=== PATIENT | male | born 2005 | race Caucasian/White ===

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

== ENCOUNTER 2024-02-15 06:51 | Emergency (ER) | payer SELFPAY ==
--- NOTE | ~2024-02-15 | XR_ITS ---
XR lumbar spine 2-3V 02/15/2024 07:54 Indication: Low back pain after heavy lifting Procedure: 3 views lumbar spine Comparison: No prior studies for comparison. Findings: Vertebral body heights are maintained. No significant disc narrowing. Normal lumbar lordosi s. Mild levocurvature of the lumbar spine, possibly positional. Sacral foramen are symmetric. Pedicle s intact. Impression: 1: Mild levocurvature of the lumbar spine. Reviewed, dictated and finalized at location B. Impression: 1: Mild levocurvature of the lumbar spine.
[2024-02-15 06:55] VITALS: BP 155/83; PULSE 79; RESP 18; TEMP 36.7; O2SAT 98
[2024-02-15] MEDS: KETOROLAC (*BKC) 60 MG/2 ML VIAL IM (07:17)
--- NOTE | 2024-02-15 07:17 | ED.BACK ---
HPI - Back Pain/Injury General Chief Complaint: Back Pain/Injury Stated Complaint: i have something going on with my lower back Time Seen by Provider: 02/15/24 07:00 History of Present Illness HPI Narrative: Patient is a 18-year-old male who presents ER with low back pain. Ongoing for 1 week. 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 He has been wearing a back brace and taking Tylenol for his pain. If persists. No numbness or weakness going down the legs. No saddle anesthesia. He reports sometimes the pain will grab him and then his legs will give out. No additional injury or complaint. No fevers or chills. No saddle anesthesia. Related Data Allergies Allergy/AdvReac Type Severity Reaction Status Date / Time Penicillins Allergy Rash Verified 02/15/24 06:58 Review of Systems Constitutional: Constitutional: Reports no additional constitutional complaints Musculoskeletal: Musculoskeletal: Reports back pain, Denies arthralgias, Denies joint swelling and Denies muscle cramps Neurologic: Reports system reviewed and no additional complaints, except as documented PMFSH Past Medical History Medical History (Updated 02/15/24 @ 08:17 by Victor M Mims MD) Healthy adult male Surgical History Surgical History (Updated 02/15/24 @ 07:19 by Victor M Mims MD) No history of previous surgery Exam Narrative: GENERAL: Well-appearing, well-nourished, and in no acute distress. HEAD: Normocephalic, atraumatic. ENT: Mucous membranes moist. BACK: patient reports tenderness at L5 just the right of midline. No reproducible tenderness on my exam. No bruising or swelling. EXTREMITIES: Normal range of motion. No edema. Ambulates without issue. SKIN: Warm, dry, no rash. NEURO: Alert and oriented x3. PSYCH: Normal mood and affect. Course Course Emergency Course: Imaging without fracture. Patient does not describe any radicular symptoms. Suspect muscle strain over disc herniation or infection. D/c with naproxen/cyclobenzaprine and a lifting restriction. will give the name of the on-call PCP. May require PT or MRI if symptoms not improving with conservative therapy. Vital Signs Vital signs: Vital Signs Temperature 98.1 F 02/15/24 06:55 Pulse Rate 79 02/15/24 06:55 Respiratory Rate 18 02/15/24 06:55 Blood Pressure 155/83 H 02/15/24 06:55 Pulse Oximetry 98 02/15/24 06:55 Oxygen Delivery Room Air 02/15/24 06:55 Temperature 98.1 F 02/15/24 06:55 Pulse Rate 79 02/15/24 06:55 Respiratory Rate 18 02/15/24 06:55 Blood Pressure 155/83 H 02/15/24 06:55 Pulse Oximetry 98 02/15/24 06:55 Oxygen Delivery Room Air 02/15/24 06:55 MDM - Back Pain/Injury Imaging Data Radiologist's impression: ITS Impressions Lumbar Spine X-Ray 02/15/24 07:55 Impression: 1: Mild levocurvature of the lumbar spine. Discharge Plan Discharge Clinical Impression: Strain of lumbar region Patient Disposition: Home, Self-Care Condition: Stable Instructions: Acute Low Back Pain (ED) Additional Instructions: Please return to the emergency department if you develop severe pain that is not controlled by pain medications or if you are unable to walk because of pain or weakness. Return to the emergency department immediately if you develop fevers, loss of bowel or bladder control (dribbling of urine or having accidents you wouldn't normally have), inability to urinate, numbness of your genital or anal area, or weakness/numbness of your legs or arms as these could all be signs of a serious medical emergency. Prescriptions: New cyclobenzaprine 10 mg tablet 10 mg PO TID PRN (Reason: muscle spasm) Qty: 20 0RF naproxen 375 mg tablet 375 mg PO BID Qty: 14 0RF Follow-up/Referrals: PHYSICIAN NOT ON STAFF,NONSTAFF [Non-Staff] - Benji Winkler MD [Physician] - 1 Week Stand Alone Forms: Work/School Release IP
== END 2024-02-15 08:25 | disposition home or self-care (01) ==
PROVIDERS: Emergency Provider Emergency Medicine
DX: S39.012A Strain of muscle, fascia and tendon of lower back, initial encounter (principal); X50.0XXA Overexertion from strenuous movement or load, initial encounter
CPT/HCPCS: 72100; 96372; 99283; J1885

== ENCOUNTER 2024-05-19 15:43 | Emergency (ER) | payer OTHER, SELFPAY ==
--- NOTE | ~2024-05-19 | US_ITS ---
US scrotum doppler DATE: 05/19/2024 16:41 INDICATION: Scrotal trauma TECHNIQUE: Real-time imaging, color flow imaging Doppler analysis of the scrotal contents COMPARISON: None FINDINGS: The right testicle measures 4.1 x 2.5 x 2.9 cm. The left testicle measures 3.7 x 2.9 x 4.2 cm. There is normal symmetric homogeneous echotexture of the testicles. No suspicious stenosis testicular mass lesion and no evidence of testicular torsion is noted. The epididymis appears unremarkable bilaterally. No hydrocele is evident. IMPRESSION: No suspicious testicular mass lesion or torsion Reviewed, dictated and finalized at Location [facility]. Reviewed, dictated and finalized at location A.
[2024-05-19 15:50] VITALS: BP 131/75; PULSE 63; RESP 20; TEMP 36.6; O2SAT 98
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
[2024-05-19] MEDS: HYDROmorphone HCL INJ (*CRX) 1 MG/ML SYR IM (16:19)
[2024-05-19 16:59] VITALS: BP 116/65; PULSE 65; RESP 18; O2SAT 99
[2024-05-19 18:26] VITALS: BP 119/69; PULSE 67; RESP 18; O2SAT 100
== END 2024-05-19 18:54 | disposition home or self-care (01) ==
PROVIDERS: Emergency Provider Student in an Organized Health Care Education/Training Program
DX: G89.11 Acute pain due to trauma (principal); N50.811 Right testicular pain; W22.8XXA Striking against or struck by other objects, initial encounter
CPT/HCPCS: 76870; 93976; 96372; 99284; J1170

== ENCOUNTER 2024-09-21 14:54 | Emergency (ER) | payer OTHER, SELFPAY ==
[2024-09-21 14:56] VITALS: BP 158/83; PULSE 83; RESP 18; TEMP 36.7; O2SAT 97
[2024-09-21] MEDS: MOXIFLOXACIN HCL 0.5% 3 ML OPHTH SOLN 1 DROP LEFT EYE (17:28)
[2024-09-21] MEDS: TETRACAINE HCL 0.5% OPHTH SOLN 4 ML BTL 1 DROP (17:30)
[2024-09-21] MEDS: FLUORESCEIN SOD 1 MG/STRIP (17:30)
--- NOTE | 2024-09-21 21:38 | ED_ITS ---
HPI - Eye Problem General Chief complaint: Eye Problems Stated complaint: splinter in L eye Time Seen by Provider: 09/21/24 16:02 History of Present Illness HPI Narrative: 19-year-old male presenting to the emergency department for a foreign body in his left eye. Patient works as a assembly mechanic and states that he was wearing shielding is eyes but felt a piece of potential med again to his left eye while he was working on a car. Notes some tearing to his left eye but no visual changes. Does not wear contact lenses. Thinks his tetanus is already up-to-date. Denies any headache, vision changes, nausea, vomiting, syncope. Was otherwise in his normal state of health. Related Data Allergies Allergy/AdvReac Type Severity Reaction Status Date / Time Penicillins Allergy Rash Verified 05/22/24 15:20 Review of Systems Review of Systems: As reviewed [facility] Past Medical History Medical History Anxiety Allergies Healthy adult male Surgical History Surgical History No history of previous surgery Family History Family History Father Depression Mother Depression Sibling Depression Grandparent Depression Social History Social History Smoking status: Never smoker Alcohol intake: never Substance use: never Substance use type: does not use Do You Feel Safe in your Home?: Yes Lack of Transportation: No Lack of Food: Sometimes True Current Housing: I Have Housing Concerned About Future Housing: No Difficulty Paying Gas/Electric Bills: No Difficulty Paying for Meds: No Currently Unemployed: No Education: Trade/Vocational Certificate Difficulty w/ Childcare or Family Care: No Living arrangements: with family Occupation/Education: occupation Gender identity (if verbalized by the patient): Male Agree to blood products: Yes Exam Narrative: GENERAL: [Well-appearing, well-nourished, and in no acute distress.] HEAD: [Normocephalic, atraumatic.] EYES: [PERRLA and EOMI.] There is a metallic foreign body that looks like a rust ring in the inferior lateral aspect of his left cornea, not in the visual axis, pupils are 3 mm and reactive, some mild tearing conjunctival injection at spares the limbus. No hypopyon or corneal abrasion or ulceration noted under f luorescein dye ENT: Nares clear, no rhinorrhea or epistaxis. Mucous membranes moist. NECK: Supple. CHEST: [Clear to auscultation. No respiratory distress.] HEART: [Regular rate and rhythm]. No murmur heard. [Normal peripheral pulses.] ABDOMEN: [Soft, nondistended], [nontender], [No rigidity or guarding] EXTREMITIES: Normal range of motion. [No edema.] SKIN: Warm, dry, no rash. NEURO: [No focal deficits]. Alert and oriented [x3.] PSYCH: [Normal mood and affect.] Course Vital Signs Vital signs: Vital Signs Temperature 36.7 C 09/21/24 14:56 Pulse Rate 83 09/21/24 14:56 Respiratory Rate 18 09/21/24 14:56 Blood Pressure 158/83 H 09/21/24 14:56 Pulse Oximetry 97 09/21/24 14:56 Oxygen Delivery Room Air 09/21/24 14:56 Temperature 36.7 C 09/21/24 14:56 Pulse Rate 83 09/21/24 14:56 Respiratory Rate 18 09/21/24 14:56 Blood Pressure 158/83 H 09/21/24 14:56 Pulse Oximetry 97 09/21/24 14:56 Oxygen Delivery Room Air 09/21/24 14:56 Procedures FB Removal Eye Foreign Body #1: Foreign Body Removal Date: 09/21/24 Foreign Body Removal Time: 17:10 Time Out performed: Yes Location: eye (L) Topical anesthetic used: tetracaine Foreign body: metal Evidence of corneal penetration: No Technique: irrigation, eye wash bottle and needle Procedure performed under: slit-lamp Post-procedure medication: ophthalmic antibiotic and topical anesthetic Patient tolerated procedure: well and no complications MDM - Eye Problem MDM Narrative Medical decision making narrative: 19-year-old otherwise healthy male presenting with foreign body in his left eye that appears to be a rust ring. 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 There is a metallic foreign body that looks like a rust ring in the inferior lateral aspect of his left cornea, not in the visual axis, pupils are 3 mm and reactive, some mild tearing conjunctival injection at spares the limbus. No hypopyon or corneal abrasion or ulceration noted under fluorescein dye. Thinks his tetanus is already updated. He otherwise has normal vital signs normal vision. Tetracaine did improve his symptomatology. Was able to successfully re move the foreign body with needle burring. Patient had immediate relief of his symptoms. He had copious eye irrigation after the procedure. Vision still remained normal. Pain controlled. He was given moxifloxacin eyedrops here in the emergency department and sent home with a prescription as well as contact info for the local eye clinic to schedule an appointment in follow-up instructions with. He was given strict return precautions and follow-up instructions and he verbalized understanding prior to safe discharge home. Medical Records Attestation: I reviewed the patient's medical records. Discharge Plan Discharge Clinical Impression: Corneal rust ring of left eye Patient Disposition: Home, Self-Care Condition: Stable Instructions: Antibiotic Form, Moxifloxacin (Into the eye), Eye Foreign Body (ED) Additional Instructions: You had a corneal foreign body and consistent with a rust ring. We were able to remove 2 separate small restraints from Rajinder eye, we will send you home with topical antibiotics for your eyes please take them as directed. Call the ophthalmology clinic at your earliest convenience to schedule an outpatient appointment. You can take Tylenol, NSAIDs for therapy and pain control. If you have any changes in your vision, worsening eye drainage, worsening headaches, fevers without response to Tylenol, nausea, vomiting or any other concerns please return to the closest [facility] [place], [place] [id number] or [facility] [address] [phone] Patient Language: Swiss Prescriptions: New moxifloxacin 0.5 % drops 1 drp LEFT EYE TID 7 Days Qty: 3 0RF No Action prednisone 20 mg tablet 20 mg PO .COMPLEX Qty: 15 0RF Rx Instructions: 2 tablets daily x 3 days, 1.5 tablets daily x 3 days, 1 tablet daily x 3 days, 1/2 tablet daily x 3 days ibuprofen 800 mg tablet 800 mg PO TID PRN (Reason: pain) Qty: 30 0RF oxycodone 5 mg capsule 5 mg PO Q8H PRN (Reason: pain) Qty: 10 0RF Follow-up/Referrals: Sammi Cerrato APN-C [Primary Care Provider] - Time of Disposition: 17:18
== END 2024-09-21 17:31 | disposition home or self-care (01) ==
PROVIDERS: Emergency Provider Student in an Organized Health Care Education/Training Program; PCP Nurse Practitioner Family
DX: T15.02XA Foreign body in cornea, left eye, initial encounter (principal); W44.8XXA Other foreign body entering into or through a natural orifice, initial encounter
CPT/HCPCS: 65220; 65222; 99283; A9270

== ENCOUNTER 2025-04-03 11:47 | Emergency (ER) | payer OTHER, SELFPAY ==
--- NOTE | ~2025-04-03 | CT_ITS ---
CLINICAL INDICATION: Epigastric pain, nausea and vomiting COMPARISON: None. TECHNIQUE: Multiple contiguous axial images of the abdomen and pelvis were performed following the ad ministration of with 100 mL Omnipaque-350 intravenous contrast The dose-length product (DLP) was 617.59 mGy-cm. Automated exposure control and iterative reconstruction technique were employed. FINDINGS/OBSERVATIONS: Visualized lower thorax: The bilateral lung bases are clear. The heart is of normal size, without pericardial effusion. Liver: The liver demonstrates homogeneous enhancement and is enlarged measuring 21 cm in longitudinal dimens ion. Gallbladder and biliary system: The gallbladder is only minimally distended, and otherwise unremarkable. Pancreas: The pancreas enhances homogeneously without ductal dilatation. Spleen: The spleen enhances homogeneously and is not enlarged. Kidneys: The bilateral kidneys enhance symmetrically without hydronephrosis or renal calculi. Adrenal glands: Unremarkable. Gastrointestinal tract: Multiple loops of fluid-filled prominent small bowel is identified with mural thickening suggesting a diffuse enteritis. Fecal stasis within the rectum. Appendix: The air-filled appendix is of normal caliber (axial series, images 127 through 143). Vasculature: Unremarkable. Lymph nodes: No pathologically enlarged or morphologically suspicious lymph nodes within the retroperitoneum or at the root of the mesentery. Pelvic structures: The bladder is distended, and otherwise unremarkable. The prostate gland is not enlarged. Body wall and musculoskeletal: Small fat-containing umbilical hernia. No significant degenerative disease within the lower thoracic or lumbosacral spine. IMPRESSION: Findings suggestive of a diffuse small bowel enteritis, as detailed above. Normal gallbladder. Normal appendix. Reviewed, dictated and finalized at location A.
--- NOTE | ~2025-04-03 | XR_ITS ---
EXAM/PROCEDURE: XR chest 2V - 04/03/2025 13:10 CDT HISTORY: 19 years old Male with epigastric pain TECHNIQUE: Two view(s) of the chest. COMPARISON: None available. FINDINGS: LUNGS/ PLEURA: No focal consolidation. No appreciable pneumothorax or large pleural effusion. HEART/ MEDIASTINUM: Heart appears normal in size. BONES: No acute osseous abnormality. OTHER: Visualized upper abdomen is unremarkable. IMPRESSION: No acute process. Reviewed, dictated and finalized at location A. IMPRESSION: No acute process.
--- NOTE | 2025-04-03 11:48 | ECG_ITS ---
Test Date: 2025-04-03 11:58:52 Measurements Intervals [place]ook Rate: 72 P: 4 CA: 133 QRS: 31 QRSD: 96 T: 38 QT: 389 QTc: 427 Interpretive Statements SINUS RHYTHM NORMAL ECG No previous ECG available for comparison Electronically Signed On 04-03-2025 14:07:38 CDT by Gerald Bronson M.D.
[2025-04-03 11:49] VITALS: BP 115/80; PULSE 99; RESP 18; TEMP 36.8; O2SAT 100
[2025-04-03 12:02] LABS: Hematocrit 47.5 % (42.0-52.0); Hemoglobin 15.6 g/dL (14.0-18.0); Immature Granulocyte Percent A 0.6 % (0-0.5); Lymphocytes Absolute Auto 0.88 K/mm3 (0.9-3.2); Mean Corpuscular HGB Conc 32.8 g/dl (32-36); Mean Corpuscular Hemoglobin 31.3 pg (26-34); Mean Corpuscular Volume 95.4 fl (80-100); Nucleated Red Blood Cells Absolute Auto 0.000 K/mm3 (0.0-0.012); Nucleated Red Blood Cells Perc 0.0 % (0.0-0.2); Platelet Count Result 283 k/mm3 (150-375); Red Blood Count 4.98 M/mm3 (4.6-6.20); White Blood Count 21.6 K/mm3 (4.5-10.0)
[2025-04-03 12:18] LABS: INR 1.0; Prothrombin Time 12.8 Seconds (11.1-14.7)
[2025-04-03 12:19] LABS: Partial Thromboplastin Time 24.2 Seconds (22.3-36.8)
[2025-04-03 12:30] LABS: Alanine Aminotransferase 29 U/L (6-50); Albumin Level 4.8 g/dL (3.5-5.1); Alkaline Phosphatase 70 U/L (38-126); Anion Gap 9 mmol/L (4-12); Aspartate Amino Transferase 34 U/L (17-59); Bilirubin,Total 0.6 mg/dL (0.2-1.3); Blood Urea Nitrogen 16 mg/dL (9-20); Calcium 9.8 mg/dL (8.4-10.2); Carbon Dioxide 24 mmol/L (22-30); Chloride 104 mmol/L (98-107); Estimated CRCL calculation 131 ml/min; Estimated Glomerular Filt Rate > 60; Glucose 112 mg/dL (65-110); Lipase 79 U/L (23-300); Potassium 4.5 mmol/L (3.4-5.0); Sodium 137 mmol/L (137-145); Total Protein 7.6 g/dL (6.3-8.2)
[2025-04-03 12:38] LABS: Troponin I < 0.012 ng/mL (0.000-0.034)
--- NOTE | 2025-04-03 14:17 | ED_ITS ---
HPI - Nausea/Vomiting/Diarrhea General Chief complaint: Nausea/Vomiting/Diarrhea Stated complaint: vomiting, full body numbness? 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 PATIENT IS TELLING ME THAT HIS DAUGHTER AND HIS BILI FRIEND HAVING SIMILAR SYMPTOMS WHICH STARTED YESTERDAY. Related Data Allergies Allergy/AdvReac Type Severity Reaction Status Date / Time Penicillins Allergy Rash Verified 04/03/25 14:36 Review of Systems 2 Review of Systems: All systems reviewed & are unremarkable except as noted in HPI and below PMFSH Past Medical History Medical History Anxiety Allergies Healthy adult male Surgical History Surgical History No history of previous surgery Family History Family History Father Depression Mother Depression Sibling Depression Grandparent Depression Social History Social History Social History: 11/01/24 somewhat confident with medical forms. Smoking status: Never smoker Alcohol intake: never Substance use: never Substance use type: does not use Do You Feel Safe in your Home?: Yes Lack of Transportation: No Lack of Food: Sometimes True Current Housing: I Have Housing Concerned About Future Housing: No Difficulty Paying Gas/Electric Bills: No Difficulty Paying for Meds: No Currently Unemployed: No Education: Trade/Vocational Certificate Difficulty w/ Childcare or Family Care: No Living arrangements: with family Occupation/Education: occupation Gender identity (if verbalized by the patient): Male Agree to blood products: Yes Exam 2 Narrative: GENERAL APPEARANCE: WELL-DEVELOPED, WELL-NOURISHED SKIN: NORMAL COLOR HEAD: NORMOCEPHALIC, NONTRAUMATIC EYES: CLEAR CONJUNCTIVA ENT: OROPHARYNX NORMAL, EARS NORMAL, NOSE NORMAL NECK: SUPPLE, NONTENDER CHEST AND RESPIRATORY: AIRWAY PATENT, NO RESPIRATORY DISTRESS, NO ACCESSORY MUSCLE USE HEART: REGULAR RATE/RHYTHM ABDOMEN: SOFT, NONTENDER, NO ORGANOMEGALY, QUIET BOWEL SOUNDS VASCULAR: NORMAL PERIPHERAL PULSES, NORMAL CAPILLARY REFILL. MUSCULOSKELETAL: NORMAL RANGE OF MOTION, NONTENDER BACK NEUROLOGIC: ALERT AND ORIENTED ?3, PRODUCTION OR PLANT ENGINEER IS NORMAL TESTED, NO GROSS MOTOR DEFICIT Course Vital Signs Vital signs: Vital Signs Temperature 36.8 C 04/03/25 11:49 Pulse Rate 99 04/03/25 11:49 Respiratory Rate 18 04/03/25 11:49 Blood Pressure 115/80 04/03/25 11:49 Pulse Oximetry 100 04/03/25 11:49 Oxygen Delivery Room Air 04/03/25 11:49 Temperature 36.8 C 04/03/25 11:49 Pulse Rate 81 04/03/25 17:21 Respiratory Rate 14 04/03/25 17:21 Blood Pressure 142/76 H 04/03/25 17:21 Pulse Oximetry 99 04/03/25 17:21 Oxygen Delivery Room Air 04/03/25 11:49 MDM - Nausea/Vomiting/Diarrhea MDM Narrative Medical decision making narrative: DIFFERENTIAL DIAGNOSIS INCLUDE HEAT ILLNESS, VIRAL GASTROENTERITIS, DEHYDRATION, ELECTROLYTE IMBALANCE, RHABDOMYOLYSIS BLOOD WORKUP TODAY SHOWED WBC 21.6 CPK 266 OTHERWISE WITHIN NORMAL LIMIT PATIENT'S GIRLFRIEND SITTING ON THE FLOOR HOLDING VOMITING BAG IN HER HAND BECAUSE HAVING SIMILAR SYMPTOMS. DIAGNOSIS GASTROENTERITIS, HEAT ILLNESS DISCHARGED ON ZOFRAN, 2 DAYS OF WORK Differential Diagnosis Differential diagnosis: Likely other ( ABOVE) Medical Records Attestation: I reviewed the patient's medical records. Lab Data Attestation: I reviewed the patient's lab results. 04/03/25 11:53 04/03/25 11:53 Labs: Lab Results 04/03/25 04/03/25 04/03/25 Range/Units 11:53 14:45 15:19 WBC 21.6 H (4.5-10.0) K/mm3 RBC 4.98 (4.6-6.20) M/mm3 Hgb 15.6 (14.0-18.0) g/dL Hct 47.5 (42.0-52.0) % MCV 95.4 (80-100) fl MCH 31.3 (26-34) pg MCHC 32.8 (32-36) g/dl RDW 12.3 (11.5-14.5) % Plt Count 283 (150-375) k/mm3 MPV 10.2 (7.4-10.4) fl Immature Gran % (Auto) 0.6 H (0-0.5) % Neut % (Auto) 86.6 H (45.5-73.1) % Lymph % (Auto) 4.1 L (18.3-44.2) % [place] % (Auto) 7.9 (2.6-8.5) % Eos % (Auto) 0.6 (0-4.4) % Baso % (Auto) 0.2 (0.2-1.2) % Lymph # (Auto) 0.88 L (0.9-3.2) K/mm3 [place] # (Auto) 1.7 H (0.1-0.6) K/mm3 Eos # (Auto) 0.1 (0-0.3) K/mm3 Baso # (Auto) 0.1 (0.0-0.1) K/mm3 Abs Immat Gran (auto) 0.13 H (0.00-0.031) K/mm3 Absolute Neuts (auto) 18.8 H (1.3-6.7) K/mm3 Absolute Nucleated RBC 0.000 (0.0-0.012) K/mm3 Nucleated RBC % 0.0 (0.0-0.2) % PT 12.8 (11.1-14.7) Seconds INR 1.0 APTT 24.2 (22.3-36.8) Seconds Sodium 137 (137-145) mmol/L Potassium 4.5 (3.4-5.0) mmol/L Chloride 104 (98-107) mmol/L Carbon Dioxide 24 (22-30) mmol/L Anion Gap 9 (4-12) mmol/L BUN 16 (9-20) mg/dL Creatinine 0.78 (0.7-1.3) mg/dL Estim Creat Clear Calc 131 ml/min Estimated GFR > 60 (59 - ) Glucose 112 H (65-110) mg/dL Calcium 9.8 (8.4-10.2) mg/dL Total Bilirubin 0.6 (0.2-1.3) mg/dL AST 34 (17-59) U/L ALT 29 (6-50) U/L Alkaline Phosphatase 70 (38-126) U/L Total Creatine Kinase 266 H (55-170) U/L Troponin I < 0.012 < 0.012 (0.000-0.034) ng/mL Total Protein 7.6 (6.3-8.2) g/dL Albumin 4.8 (3.5-5.1) g/dL Lipase 79 (23-300) U/L Influenza A (RT-PCR) Negative (Negative) Influenza B (RT-PCR) Negative (Negative) RSV (RT-PCR) Negative (Negative) SARS-CoV-2 RNA (RT-PCR) Negative (Negative) Critical Care Time Critical Care Time Critical Care Time: No Discharge Plan Discharge Clinical Impression: Gastroenteritis, Heat exhaustion Patient Disposition: Home Condition: Improved Instructions: Heat Exhaustion (ED), Gastroenteritis (ED) Additional Instructions: RETURN IF SYMPTOMS ARE WORSENING , CALL YOUR FAMILY PHYSICIAN FOR APPOINTMENT, TAKE TYLENOL NEEDED FOR ACHES AND PAIN, CONTINUE HOME MEDICATIONS. Patient Language: Salvadorean Prescriptions: New ondansetron 4 mg tablet,disintegrating 2 mg PO Q4H PRN (Reason: nausea and vomiting) Qty: 10 0RF No Action prednisone 20 mg tablet 20 mg PO .COMPLEX Qty: 15 0RF Rx Instructions: 2 tablets daily x 3 days, 1.5 tablets daily x 3 days, 1 tablet daily x 3 days, 1/2 tablet daily x 3 days Follow-up/Referrals: Sammi Cerrato, FRONT END JAVA DEVELOPER-C [Primary Care Provider] - Stand Alone Forms: Work/School Release IP
--- NOTE | 2025-04-03 14:36 | ECG_ITS ---
Test Date: 2025-04-03 14:38:48 Measurements Intervals [place] Rate: 60 P: 11 NE: 134 QRS: 64 QRSD: 104 T: 38 QT: 402 QTc: 403 Interpretive Statements SINUS RHYTHM NORMAL ECG Compared to ECG 04/03/2025 11:58:52 No significant changes Electronically Signed On 04-03-2025 16:47:08 CDT by Gerald Bronson M.D.
[2025-04-03 14:44] VITALS: BP 130/80; PULSE 73; RESP 20; O2SAT 100
[2025-04-03] MEDS: ONDANSETRON INJ 4 MG/2 ML VIAL IV PUSH (14:47)
[2025-04-03] MEDS: SODIUM CHLORIDE 0.9% IV 1,000 ML 999 ML IV CONT ×2 (14:47→15:08)
[2025-04-03 15:23] LABS: Creatine Kinase 266 U/L (55-170)
[2025-04-03 15:31] LABS: Troponin I < 0.012 ng/mL (0.000-0.034)
[2025-04-03 15:48] VITALS: BP 130/91; PULSE 67; RESP 24; O2SAT 100
[2025-04-03 16:02] LABS: Influenza A QL RT-PCR Negative (Negative); Influenza B QL RT-PCR Negative (Negative); RSV RNA, RT-PCR Negative (Negative); SARS-CoV-2 RNA PCR Negative (Negative)
[2025-04-03 17:21] VITALS: BP 142/76; PULSE 81; RESP 14; O2SAT 99
[2025-04-03 18:14] VITALS: BP 131/68; PULSE 74; RESP 15; O2SAT 100
== END 2025-04-03 18:17 | disposition home or self-care (01) ==
PROVIDERS: Emergency Provider Emergency Medicine; PCP Nurse Practitioner Family
DX: K52.9 Noninfective gastroenteritis and colitis, unspecified (principal); T67.5XXA Heat exhaustion, unspecified, initial encounter; Z20.822 Contact with and (suspected) exposure to COVID-19; X30.XXXA Exposure to excessive natural heat, initial encounter
CPT/HCPCS: 36415; 71046; 74177; 80053; 82550; 83690; 84484; 85025; 85610; 85730; 87637; 93005; 96361; 96374; 99284; J2405; J7030; Q9967